=== PATIENT | female | born 1945 | race Caucasian/White ===

== ENCOUNTER 2025-01-07 18:32 | Inpatient (IN) | payer MEDICARE, OTHER, SELFPAY ==
[2025-01-07] VITALS (9 sets, daily range): BP systolic 116–187; BP diastolic 63–126; BMI 27.3; BMI 26.9
[2025-01-07 12:03] LABS: Hematocrit 39.6 % (37.0-47.0); Hemoglobin 13.5 g/dL (12.0-16.0); Mean Corp Hgb Conc. 34.1 g/dL (33.0-37.0); Mean Corpuscular Volume 95.2 fL (81.0-99.0); Nucleated Red Blood Cells % 0 %; Platelet Count 274 10^3/uL (130-400); Red Cell Dist. Width 12.2 % (11.5-14.5)
[2025-01-07 12:23] LABS: ALT (SGPT) 20 U/L (0-35); AST (SGOT) 29 U/L (14-36); Albumin 4.8 g/dl (3.5-5.0); Alkaline Phosphatase 52 U/L (38-126); Blood Urea Nitrogen 37 mg/dl (7-17); Calcium 9.9 mg/dl (8.4-10.2); Carbon Dioxide 24 mmol/L (22-30); Chloride 104 mmol/L (98-107); Glucose 150 mg/dl (70-99); Lipase 89 U/L (23-300); Potassium 4.8 mmol/L (3.5-5.1); Sodium 137 mmol/L (135-145); Total Protein 9.0 g/dl (6.3-8.2); eGFR 45.48
--- NOTE | 2025-01-07 15:26 | ED.GENMED ---
History of Present Illness
General
Chief Complaint: Abdominal Pain
Source: patient
Exam Limitations: none
Time Seen by Provider: 01/07/25 14:39
Nursing documentation reviewed up to this point in time: agreed with
History of Present Illness
History of Present Illness:
The patient is a very pleasant 79-year-old female with a past medical history of diverticulitis who comes in with complaints of waking up early this morning with lower abdominal pain. Patient reports it is within gradually getting worse and has
been constant. It is partially relieved when she sits up and worse when she lays flat. Patient reports nausea but denies vomiting. Patient reports she has had diverticulitis in the past which has caused pain to the same area, however, she has
never needed to come to the hospital for it before.
Past History
Past History
ED Past Medical History: HTN
ED Past Surgical History: Other (Mohs procedure)
Social History
Tobacco: Non-smoker
Alcohol: Other
Drug: None
Personal: Other
Living: other
Employment: Other
Family History
Family History: Other
Review of Systems
Review of Systems
Allergies reviewed?: Yes
Other source history: family (Sister, who is at the bedside)
All Other Systems: ROS reviewed and negative except as documented in HPI and ROS
Constitutional: Reports no symptoms
EENT: Reports no symptoms
Respiratory: Reports no symptoms
Cardiac: Reports no symptoms
ABD/GI: Reports abdominal pain and nausea
: Reports no symptoms
Musculoskeletal: Reports no symptoms
Skin: Reports no symptoms
Neurological: Reports no symptoms
Endocrine: Reports no symptoms
Hematologic/Lymphatic: Reports no symptoms
Psychiatric: Reports no symptoms
Phy Exam
Physical Exam
Physical Exam:
Physical Exam
General: Patient appears slightly uncomfortable but is nontoxic
Neck: supple. no meningeal signs. normal psoterior pharynx
Heart: s1/s2 regular rate and rhythm, no murmur. equal radial pulses.
Lungs: no acute respiratory distress. clear bilaterally
Abdomen: normal bowel sounds. Soft throughout. Mild lower abdominal tenderness bilaterally. No pulsatile mass.
Neuro: alert and oriented. no focal neurological deficits
Skin: no rash
Psychiatric: well kept. interactive and cooperative
Extremities: no edema. no calf tenderness. negative homans. good distal pulses
Course
Orders/Labs/Results
Orders:
Orders
01/07/25 11:52
Complete Blood Count/With Diff Urgent
Comprehensive Metabolic Panel Urgent
Lipase Urgent
01/07/25 15:24
Morphine Sulfate 4 mg IV NOW STA
Ondansetron Injectable [Zofran] 4 mg IV NOW STA
01/07/25 15:25
CT Abd/pelvis W Iv Cont Urgent
Comment:
Reason For Exam: lower abdominal pain
0.9% Sodium Chloride 500 ml [Nss] 500 ml IV BOLUS
01/07/25 17:24
US Pelvis [US Pelvis Only (non-obstetric)] Urgent
Comment:
Reason For Exam: Right ovarian mass- torsion study
01/07/25 17:28
Ketorolac [Toradol] 15 mg IV NOW STA
01/07/25 18:06
Admit/Transfer Patient As Directed
Co-Sign Provider:
Level of Care: Inpatient admission
Assign to:: Medical/Surgical
Physician / Group: Arnaldo Cazares
Diagnosis: abdominal pain
Reason for Hospitalization: abdominal pain
Expected length of stay greater than two midnights?: Yes
ELOS- Estimated Length of Stay in days: 3
I certify the patient meets the requirements for IP care: Yes
PRN Pain Medication Management As Directed
May give lesser potent ordered pain med per pt: Yes
preference::
Protocol:: Medication orders for pain may be administered in a
manner that supports deferring to patient preference
when the pt is:
- Requesting an ordered lesser potent pain medication.
Least to most potent pain medications are defined
as: acetaminophen < NSAID < tramadol < opioids
(morphine, oxycodone, hydromorphone).
- Requesting a lesser dose of the same medication IF
ORDERED.
- Requesting a less intrusive route of administration
if both routes are prescribed by the provider (PO <
IV).
01/07/25 18:07
Code Status As Directed
Resuscitation Status: Full Code
Abnormal Lab Results
01/07/25
11:52
RBC 4.16 L 10^6/uL
(4.20-5.40)
MCH 32.5 H pg
(27.0-31.0)
MPV 10.5 H fL
(7.4-10.4)
Abs Immat Gran (auto) 0.1 H 10^3/uL
(0-0.05)
Absolute Neuts (auto) 9.2 H 10^3/uL
(1.4-6.5)
Absolute Lymphs (auto) 0.7 L 10^3/uL
(1.2-3.4)
Immature Gran % 0.6 H %
(0-0.5)
Neutrophils % 88.4 H %
(42.2-75.2)
Lymphocytes % 7.0 L %
(20.5-51.1)
BUN 37 H mg/dl
(7-17)
Creatinine 1.2 H mg/dL
(0.6-1.0)
Glucose 150 H mg/dl
(70-99)
Total Protein 9.0 H g/dl
(6.3-8.2)
01/07/25 11:52
01/07/25 11:52
Vital Signs
Initial and Last Documented VS:
Initial Vital Signs
Temp Pulse Resp BP Pulse Ox
98.0 F 66 16 116/84 96
01/07/25 11:38 01/07/25 11:38 01/07/25 11:38 01/07/25 11:38 01/07/25 11:38
Last Documented Vital Signs
Temp Pulse Resp BP Pulse Ox
98.6 F 78 20 171/80 96
01/07/25 15:46 01/07/25 17:25 01/07/25 17:25 01/07/25 17:25 01/07/25 17:25
MDM/Problems Addressed
Differential Diagnosis Includes:
Acute uncomplicated diverticulitis, acute complicated diverticulitis, UTI
MDM/Problems Addressed:
Patient presents with acute lower abdominal pain
Chronic conditions affecting care:
Patient has chronic diverticulosis
Acute Exacerbation and/or Progression of Chronic Illness:
Patient may have acute diverticulitis caused from chronic diverticulosis
*Radiology
Radiology exam reviewed: radiology read reviewed
*Pulse Oximetry
SaO2: 96
Oxygen Mode of Delivery: Room air
Patient hypoxic: no
Comment: Patient is 96% on room air, not hypoxic
*Automation And Controls Instructor Interpretation
Rate: normal
Interpretation: normal
Rhythm: sinus
*Critical Care Note
Total Time (30-74mins, 75-104mins- exclusive of procedures): Not Applicable
Data Reviewed
Review of Other/Old Records Reveals: Labs (Labs reviewed from February 2023)
Source: patient and family ([id number] who are at the bedside)
Patient Management
Social determinants of health affecting care: Living situation and Strong social support
Update Note
Update Note:
5 PM CAT scan shows sizable complex cystic mass in right pelvic area which looks concerning for possible right ovarian neoplasm. I discussed these results with both the patient and her [id number], who is at the bedside. I also discussed the
case with Dr. Covarrubias who agreed that patient should be admitted to the hospitalist for pain control. We will proceed now with a pelvic ultrasound to check for ovarian torsion.
ED Attending Note
-
Portions of this chart may have been created with voice recognition software.� Occasional wrong word or��sound alike� substitutions may have occurred due to the inherent limitations of voice recognition software.
Discharge Plan
Departure
Patient Disposition: Admit
Date of Disposition: 01/07/25
Time of Disposition: 17:28
Admit to: Med/Surg
Presentation/result/management discussed w/ accepting MD/DO: Hospitalist
Patient with high blood pressure during this ER visit?: Yes
Condition: Good
Discharge Problem:
Right pelvic mass
Interventions
Interventions:
*Risk Screen - Suicide Last Done: 01/07/25 11:42
*General Assessment Last Done: 01/07/25 15:46
*Neglect/Abuse Screening Last Done: 01/07/25 11:42
*ED- Fall Risk Assessment Last Done: 01/07/25 15:46
*ED COVID-19 Vaccine History Last Done: 01/07/25 15:46
*Nursing Disposition Last Done: 01/07/25 18:48
ZG-Pbhkxo-[id number] Assessment Last Done: 01/07/25 15:46
[2025-01-07] MEDS: ZOFRAN 4 MG IV (15:40)
[2025-01-07] MEDS: MORPHINE SULFATE 4 MG IV (15:40)
[2025-01-07] MEDS: NSS 500 IV (15:40)
--- NOTE | 2025-01-07 17:28 | HPS.HSE ---
Family Physician
-
Family Physician: Sis Chatman PA-C
Chief Complaint
-
lower abdominal pain
History of Present Illness
Patient is a 79-year-old female with past medical history significant for hypertension, hyperlipidemia and chronic kidney disease IIIa who presented to [facility] ED for evaluation of lower abdominal pain. Patient reports a history of diverticulitis and
states she woke early this morning with lower abdominal pain. She describes pain as crampy, consistent and an 8 out of 10. She reports that Friday she had a runny nose, felt fine on Friday but on Friday started with a cough and woke early on
Friday with subjective fever. She self tested for Covid which was negative and reports symptoms have since resolved. Patient states she woke this morning with pain present with some associated nausea. Denies any chills, cough, shortness of
breath, vomiting or diarrhea. She notes she has not urinated at all today.
Medical History
Past Medical History
Past Medical History: Reports Other
Additional Past Medical History:
hypertension
hyperlipidemia
chronic kidney disease IIIa
anxiety
Hx diverticulitis
Past Surgical History: Reports Other
Additional Past Surgical History:
R forearm fracture
Tonsilectomy
Social History
Tobacco: Former Smoker
Alcohol: Daily (glass of red wine )
Living: Alone
Employment: Retired
Family History
Family History: Other (Brother x2: Lung cancer; Sister: breast cancer; Brother: severe asthma; Mother: dementia; Father: prostate cancer)
Allergies / Home Medications
Allergies reflects when Allergies were last updated in [employer].
Home Medications with original date entered in [employer]
Allergy/Medication List:
Allergies
Allergy/AdvReac Type Severity Reaction Status Date / Time
Cephalosporins Allergy Unknown Verified 01/07/25 11:43
penicillin G Allergy Unknown Verified 01/07/25 11:43
Penicillins Allergy Unknown Verified 01/07/25 11:43
Home Medications
hydrochlorothiazide 25 mg tablet 25 mg PO DAILY 02/24/23
lisinopril 20 mg tablet 20 mg PO DAILY 02/24/23
simvastatin 40 mg tablet 40 mg PO DAILY 02/24/23
Review of Systems
-
History Source: Patient
Constitutional: Reports Night Sweats; Denies Fever or Chills
EENT: Denies Sore Throat
Respiratory: Reports Cough (earlier this week, has since resolved ); Denies Trouble Breathing
Cardiac: Denies Chest Pain, Diaphoresis, Palpitations or Syncope
Abdomen/GI: Reports Nausea; Denies Abdominal Pain, Vomiting, Diarrhea, Constipated or Anorexia
: Reports Other (no urination today ); Denies Dysuria, Frequency or Urgency
Musculoskeletal: Denies Joint Swelling
Skin: Denies Rash
Neurological: Denies Dizzy, Headache, Weakness or Numbness
Endocrine: Denies Polyuria or Polydipsia
Hematologic/Lymphatic: Denies Bleeding
Physical Exam
Vital Signs
Vital Signs
Temp Pulse Resp BP Pulse Ox
98.6 F 78 20 171/80 96
01/07/25 15:46 01/07/25 17:25 01/07/25 17:25 01/07/25 17:25 01/07/25 17:25
Physical Exam
General: Well Developed, Well Nourished, No Apparent Distress, Comfortable and Conversant
HEENT: NormoCephalic, Moist mucous membranes and Atraumatic
Respiratory: Clear and Non Labored Respirations; No Wheezes, Rales, Rhonchi or Crackles
Cardiac: S1/S2 and Regular Rhythm; No Murmur, Rub or Gallop
Breast: Deferred by me
GI: Soft, Non Tender, Non Distended and Normal Bowel Sounds; No Organomegaly
Rectal: Deferred by Provider
Genito-urinary: Deferred by me
Musculoskeletal: No Clubbing, No Cyanosis and No Edema
Skin: Warm and IV/Catheter Site; No Rash
Neuro: Awake, AO x 3 and Nonfocal/grossly intact
Psych: Calm and Intact Judgment/Insight
Laboratory Results
-
01/07/25 11:52
01/07/25 11:52
Laboratory Results
Total Bilirubin 0.6 mg/dl (0.2-1.3) 01/07/25 11:52
AST 29 U/L (14-36) 01/07/25 11:52
ALT 20 U/L (0-35) 01/07/25 11:52
Alkaline Phosphatase 52 U/L (38-126) 01/07/25 11:52
Lipase 89 U/L (23-300) 01/07/25 11:52
Data Reviewed
-
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 Incidental 2.1 cm cystic focus in the uncinate process of the pancreas. A follow-up abdominal MRI can be performed
in 2 years per ACR guidelines. Other chronic findings, as detailed above.)
Lab Data: Labs Reviewed by me (BUN 37, Creat 1.2, eGFR 45.48)
Impression/Plan
-
IMPRESSION/PLAN:
#lower abdominal pain 2/2 diverticulitis vs. UTI vs. urinary retention vs. ovarian mass
#Hx diverticulitis
acute onset lower abdominal pain with nausea
no urination today reported by patient
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
Incidental 2.1 cm cystic focus in the uncinate process of the pancreas. A follow-up abdominal MRI can be performed in 2 years per ACR guidelines.
Other chronic findings, as detailed above.
Pelvic US: pending
- Admit to med/surg
- Consult Gynecology
- pain regimen
- antiemetics
- NPO at midnight with IVF
- bladder scan/straight cath protocol
#hypertension
- continue HCTZ and lisinopril
#hyperlipidemia
- continue simvastatin
#chronic kidney disease IIIa
BUN 37, Creat 1.2, eGFR 45.48
- appears to baseline
- monitor BMP
#anxiety
Code status: full code
DVT prophylaxis: heparin sq
--- NOTE | 2025-01-07 17:46 | W.PN.UPDATE ---
Update Note
Progress Note Update
This note serves as an addendum to the H&P by sanitation tank washer TOD�
Ade Yoon
HPI�
79F HX diverticulitis sen at ER:
- pw waking up early this morning with lower abdominal pain.
- gradually getting worse and has been constant.
- It is partially relieved when she sits up and worse when she lays flat.
- reports nausea but denies vomiting.
- Patient reports she has had diverticulitis in the past which has caused pain to the same area, however, she has never needed to come to the hospital for it before.
PHX; see above
Reviewed VS:
Temp Pulse Resp BP Pulse Ox
98.6 F 78 20 171/80 96
01/07/25 15:46 01/07/25 17:25 01/07/25 17:25 01/07/25 17:25 01/07/25 17:25
PE
Gen: looks uncomfortable but is nontoxic
HEENT: anicteric
Neck: supple
Lungs: CTA
Cor: RRR S1 S2
Abdomen:�Soft t. Mild lower abdominal tenderness bilaterally.
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
MS: no ederma
Psych:well kept. interactive and cooperative
Relevant Data�
01/07/25
11:52
RBC 4.16 L
MCH 32.5 H
MPV 10.5 H
Abs Immat Gran (auto) 0.1 H
Absolute Neuts (auto) 9.2 H
Absolute Lymphs (auto) 0.7 L
Immature Gran % 0.6 H
Neutrophils % 88.4 H
Lymphocytes % 7.0 L
BUN 37 H
Creatinine 1.2 H
Glucose 150 H
Total Protein 9.[address] Abd/pelvis W Iv Cont
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
- Incidental 2.1 cm cystic focus in the uncinate process of the pancreas. A follow-up abdominal MRI can be performed in 2 years per
- Tiny hypoattenuating focus in the inferior right hepatic lobe, too small to accurately characterize.
- The gallbladder, bile ducts, pancreas, and bilateral adrenal glands are unremarkable. 2.1 cm cystic focus in the uncinate process of the pancreas.
- Chronic bilateral renal cortical thinning. Small renal cysts and too small to accurately characterize renal lesions.
No hydronephrosis.
No prior hospitalist admission:
ASSESSMENT & PLAN
Acute onset of lower abdominal pain and nausea
CT shows large R complex ovarian mass concerning for CA
- NPO after MN and IVF
- PRN analgesia
- await pelvic US report
- GYNAE Dr Covarrubias consulted - will follow as consult
Benign HTN
- c/w Lisinopril anf HCTZ
HLD on Statin
DVT Px: SQH
Full code
IP MS
--- NOTE | 2025-01-07 18:47 | EDRN ---
this RN called the receiving unit and notified them that paper report was going to be tubed up
[2025-01-07] MEDS: NSS 1000 IV (21:29)
--- NOTE | 2025-01-07 22:01 | PTCARENOTE ---
Receive pt from ER. Pt alert oriented X3, calm, in no distress. Pt assisted to her bed, steady on her feet. Pt oriented to the room, call hamilton within reach. Pt states that her lower Abd pain 'is gone'. Pt denies nausea, vomiting. VSS (T=98.1, HR=70,
RR=20, RX=420/100, SpO2=94% on RA). IVFs infusing as per order. Pt will be NPO after midnight. Will continue to monitor the pt.
[2025-01-07] MEDS: HEPARIN 5000 UNITS SC (23:31)
[2025-01-08 07:17] VITALS: BP 121/62
[2025-01-08] MEDS: ZESTRIL 20 MG PO (08:33)
[2025-01-08] MEDS: ORETIC 25 MG PO (08:33)
[2025-01-08] MEDS: HEPARIN 5000 UNITS SC (08:33)
[2025-01-08] MEDS: LIPITOR 20 MG PO (08:33)
[2025-01-08 09:02] LABS: Hematocrit 34.4 % (37.0-47.0); Hemoglobin 11.8 g/dL (12.0-16.0); Mean Corp Hgb Conc. 34.3 g/dL (33.0-37.0); Mean Corpuscular Volume 95.6 fL (81.0-99.0); Platelet Count 271 10^3/uL (130-400); Red Cell Dist. Width 12.4 % (11.5-14.5)
[2025-01-08] MEDS: NSS 1000 IV (09:05)
[2025-01-08 10:03] LABS: Blood Urea Nitrogen 32 mg/dl (7-17); Calcium 9.0 mg/dl (8.4-10.2); Carbon Dioxide 26 mmol/L (22-30); Chloride 106 mmol/L (98-107); Estimated Creatinine Clearance 33 ml/min; Glucose 101 mg/dl (70-99); Potassium 4.2 mmol/L (3.5-5.1); Sodium 138 mmol/L (135-145); eGFR 41.31
--- NOTE | 2025-01-08 11:10 | CM ---
Addendum entered by Brook Rodriguez RN 01/08/25 12:06:
IMM reviewed.
Original Note:
Reviewed the chart notes and spoke with the patient at the bedside. The patient resides alone in a two story home with two steps to enter. The patient reports no DME/VN/SNF in the past. The patient confirmed her pharmacy of choice is [facility] [address]
[place]. continues to be available to patient/family and is monitoring medical plan for needs at discharge.
Plan: Discharge plans will depend on the patient's progress.
--- NOTE | 2025-01-08 11:34 | W.PN.HOSP.TC ---
Today's Communication/Plan
-
DC today
Assessment / Plan
Assessment / Plan
CT Abd/pelvis W Iv Cont
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
Incidental 2.1 cm cystic focus in the uncinate process of the pancreas. A follow-up abdominal MRI can be performed in 2 years per
Tiny hypoattenuating focus in the inferior right hepatic lobe, too small to accurately characterize.
The gallbladder, bile ducts, pancreas, and bilateral adrenal glands are unremarkable. 2.1 cm cystic focus in the uncinate process of the pancreas.
Chronic bilateral renal cortical thinning. Small renal cysts and too small to accurately characterize renal lesions.
No hydronephrosis.
Pelvic US
IMPRESSION:
Large complex cystic mass in the right ovary again concerning for ovarian neoplasm.
No sonographic evidence for ovarian torsion.
ASSESSMENT & PLAN
Acute onset of lower abdominal pain and nausea
CT shows large R complex ovarian mass concerning for CA
Pelvic US results above
-given pain now resolved, OK to DC with outpatient follow up. Discussed with Dr. Ambrosio.
-oxycodone PRN severe pain, patient given warning signs on when to seek emergency medical attention
Benign HTN
- c/w Lisinopril and HCTZ
HLD on Statin
DVT Px: SQH
Full code
IP MS
Anticipated Discharge: Today
Subjective/Interval History
-
Date of Service: January 08, 2025
no pain this morning
feels hungry
Objective Data
-
Labs:
Laboratory Results
01/08/25
08:08
WBC 8.1
Hgb 11.8 L
Hct 34.4 L
Plt Count 271
Sodium 138
Potassium 4.2
Chloride 106
Carbon Dioxide 26
BUN 32 H
Creatinine 1.3 H
Glucose 101 H
Calcium 9.0
Vital Signs:
Vital Signs
Temp Pulse Resp BP Pulse Ox
97.8 F 66 18 121/62 95
01/08/25 07:17 01/08/25 07:17 01/08/25 07:17 01/08/25 07:17 01/08/25 07:17
I&O
01/07/25 01/08/25 01/09/25
06:59 06:59 06:59
Intake Total 600 / 600
Balance 600 / 600
Review of Systems
-
History Source: Patient
All other systems: Reviewed and negative
Physical Exam
-
General: No Apparent Distress
HEENT: PERRLA
Respiratory: Clear to Auscultation; Negative Wheezes
Cardiac: Regular Rhythm and S1/S2
GI: Soft and Nontender
Musculoskeletal: No Edema
Skin: Warm and Dry; Negative Rash
Neuro: AO x 3
Psych: Calm
Data Reviewed
-
Diagnostic Radiology: Report Reviewed by me
Labs: Labs Reviewed by me
[2025-01-08 12:38] VITALS: BP 127/61
--- NOTE | 2025-01-08 12:47 | W.DS.TRANS ---
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
-
Discharge Instructions:
Discharge Diagnosis/Procedures ovarian mass
Diet Regular
Activity As tolerated
Driving Restrictions As prior to admission
Bathing Restrictions None
Instructions:
Stand-Alone Forms:
Changes to Home Medications: Yes
Discharge Medications:
DC Medications w/original date entered in [employer]
hydrochlorothiazide 25 mg tablet 25 mg PO DAILY Fluid Retention/Swelling 02/24/23
lisinopril 20 mg tablet 20 mg PO DAILY Blood Pressure 02/24/23
simvastatin 40 mg tablet 40 mg PO DAILY High Cholesterol 02/24/23
oxycodone 5 mg capsule 5 mg PO Q8H PRN severe pain #10 caps 01/08/25
Home Medication Changes
addition of oxycodone as needed for severe pain
Pending Results: No
--- NOTE | 2025-01-08 14:39 | W.DCSUMMARY ---
Discharge Summary
Discharge Data
Date of Admission: 01/07/25
Date of Discharge: 01/08/25
-
Pending Results: No
Hospital Course
Discharging Physician : Dr. Codie Marquez
Disposition : Home
Primary care physician : Dr. Sis Chatman
Principal Discharge diagnosis : Right ovarin mass
Hospital Course :
Patient is a 79-year-old female with past medical history significant for hypertension, hyperlipidemia and chronic kidney disease IIIa who presented to [facility] ED for evaluation of lower abdominal pain. She was found to have an 11.5cm complex mass in
right pelvis on CT, highly suspicious for a right ovarian neoplasm. She was admitted to medicine with Gynecology consulting. Pelvic US showed large complex cystic mass. She received morphine in the ER, no pain meds overnight and denies pain this
morning. Seen by Gynecology the following morning. Given she is pain free, she can be discharged with close outpatient follow up. She was given information to call James Cruz or Natan Solitario. She is prescribed 10 pills oxycodone as needed for
severe pain and given warning signs on when to seek ER treatment.
Time spent on discharge was 31 minutes.
Important imaging findings :
CT Abd/pelvis W Iv Cont
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
Incidental 2.1 cm cystic focus in the uncinate process of the pancreas. A follow-up abdominal MRI can be performed in 2 years per
Tiny hypoattenuating focus in the inferior right hepatic lobe, too small to accurately characterize.
The gallbladder, bile ducts, pancreas, and bilateral adrenal glands are unremarkable. 2.1 cm cystic focus in the uncinate process of the pancreas.
Chronic bilateral renal cortical thinning. Small renal cysts and too small to accurately characterize renal lesions.
No hydronephrosis.
Pelvic US
IMPRESSION:
Large complex cystic mass in the right ovary again concerning for ovarian neoplasm.
No sonographic evidence for ovarian torsion.
Procedure findings :
Discharge Plan
-
Patient Disposition: Home (Routine Discharge)
Discharge Diagnosis/Procedures: ovarian mass
Diet: Regular
Activity: As tolerated
Driving Restrictions: As prior to admission
Bathing Restrictions: None
Referrals:
Sis Chatman PA-C [Family Provider, [facility]] - in less than 1 week
Additional Discharge Medication Instructions: Please follow up with Gynecology Oncology regarding ovarian mass. You may follow up with Dr. Jaci Martines, Dr. Esparza ([place]); at [place] or [place]
Take Oxycodone as needed for severe pain
Seek medical attention if you have pain not resolved by Oxycodone, fevers, nausea or vomiting
Prescriptions:
New
oxycodone 5 mg capsule
5 mg PO Q8H PRN (Reason: severe pain) Qty: 10 0RF
Continued
lisinopril 20 mg Tablet
20 mg PO DAILY
simvastatin 40 mg Tablet
40 mg PO DAILY
hydrochlorothiazide 25 mg Tablet
25 mg PO DAILY
Discharge Orders:
Discharge Patient (As Directed); Ordered 01/08/25
Ordered By: Codie Marquez
Discharge Date and Time
Discharge Date/Time: 01/08/25 13:31
Print Language: CROATIAN
--- NOTE | 2025-01-08 14:48 | CON.MD ---
Consultation - Medical
-
79yo presented to the ER last night due to 8/10 abdominal pain. She states she got 1 dose of medication last night but has not needed anything since then. She has been NPO since admission but denies n/v/f/c. denies vaginal bleeding or abnormal
discharge. Normal voiding. 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
PMHx: hypertension, hyperlipidemia, chronic kidney disease IIIa, anxiety, diverticulitis
PGYNhx: Denies any significant
POBHx: x1
PSHx: R forearm fracture , Tonsillectomy
SHx: Former Tobacco use, Daily wine, no ill
FHx: Brother x2 Lung CA, Sister Breast CA, Father- Prostate CA
Meds: See Med List
All: Cephalosporin, PCN
Vitals & Labs: See Below
Pelvic US 01/07: Uterus 7.3c 2.4x 4.4cm. Calcification in the posterior myometrium 10mm. EMS 3mm. right ovary Large Complex cystic mass in the right ovary with mural nodules and septations 13.5x 9.2x 12.7cm concerning for ovarian neoplasm. Left ovary
1.8cm. No FF in pelvis. No evidence of torsion.
CT A/P: Complex mass in the right upper pelvis of likely ovarian origin with cystic and intermediate attentuation components 10.5x 11.5x 11.3cm. suspicious for neoplasm. No abdominal or retroperitoneal lymphadenopathy. No free fluid.
Gen: nad well appearing
Abd: soft, with mild ttp in the right mid to lower abdomen. No r/g.
Pelvic deferred
A/P: 79yo with abdominal pain and Pelvic Mass
1. Pelvic Mass:
-this is likely the cause of her abdominal pain. I am happy that the pain seems to have mostly resolved. Patient without need for pain medication for many hours.
-Reviewed the findings of her Pelvic US and CT scan and the concern for an ovarian malignancy. Explained she will need to be seen by Business [employer] Instructor Onc and surgery is very likely to be needed to remove the mass and get a final diagnosis. Explained to the
patient that we no longer have a [employer] In[employer] [facility] provider at this hospital thus I advised she can be seen either at [facility], or [facility].
-Given that she was only admitted for pain control and this pain has now improved, I believe she is stable for dc home now and encouraged to call any of the above facilities on Friday to schedule an appointment. This was relayed to Dr. Marquez. I
will not order tumor markers as patient will be following up at an outside facility and the results will not return before she leaves today.
25 mins spent with patient, review of imaging, documentation and contact with primary team.
Consultation
-
Date/Time Consultation Performed: 01/08/25 1130
Performing Provider: Dr. Ornelas
Reason for Consultation: Ovarian Mass, Abdominal Pain
Vital Signs and Labs
-
Vital Signs and Labs:
Vital Signs
Temp Pulse Resp BP Pulse Ox
97.3 F 74 16 127/61 96
01/08/25 12:38 01/08/25 12:38 01/08/25 12:38 01/08/25 12:38 01/08/25 12:38
Lab Results
01/08/25 08:08
01/08/25 08:08
Sodium 138 mmol/L (135-145) 01/08/25 08:08
Potassium 4.2 mmol/L (3.5-5.1) 01/08/25 08:08
BUN 32 mg/dl (7-17) H 01/08/25 08:08
Glucose 101 mg/dl (70-99) H 01/08/25 08:08
Calcium 9.0 mg/dl (8.4-10.2) 01/08/25 08:08
== END 2025-01-08 13:31 | disposition home or self-care (01) | DRG 756 ==
LOC: 4 EAST ACU 18:32
PROVIDERS: Emergency Medicine; Nurse Practitioner Family; ADMITTING PHYSICIAN Internal Medicine; ATTENDING PHYSICIAN Student in an Organized Health Care Education/Training Program; EMERGENCY PHYSICIAN Emergency Medicine; FAMILY PHYSICIAN Physician Assistant Medical; OTHER PHYSICIAN Obstetrics & Gynecology
DX: C56.1 Malignant neoplasm of right ovary (principal); I12.9 Hypertensive chronic kidney disease with stage 1 through stage 4 chronic kidney disease, or unspecified chronic kidney disease; N18.31 Chronic kidney disease, stage 3a; E78.5 Hyperlipidemia, unspecified; F41.9 Anxiety disorder, unspecified; Z87.891 Personal history of nicotine dependence; Z80.0 Family history of malignant neoplasm of digestive organs; Z79.899 Other long term (current) drug therapy
CPT/HCPCS: 74177; 76856; 80048; 80053; 83690; 85025; 85027; 96361; 96374; 96375; 99285; Q9967